=== PATIENT | female | born 1940 | race Caucasian/White ===

== ENCOUNTER 2020-11-18 10:12 | Inpatient (IN) | payer MEDICARE ==
[2020-11-18 11:07] LABS: #Eosinphils 0.1 10x3/uL (0.0-0.5); #Monocytes 0.8 10x3/uL (0.0-1.1); #Neutrophils 7.8 10x3/uL (1.5-8.4); %Basophils 0.3 % (0.0-2.0); %Eosinophils 0.9 % (0.0-6.0); %Monocytes 8.1 % (0.0-10.0); %Neutrophils 84.2 % (40.0-75.0); Hemoglobin 8.8 g/dL (12.0-15.5); Mean Corpuscular HGB CONC 31.5 g/dL (32.0-36.0); Mean Corpuscular Hemoglobin 30.2 pg (27.0-33.0); Mean Corpuscular Volume 95.9 fl (81.6-98.3); Mean Platelet Volume 10.2 fl (7.4-10.4); Platelet Count 131 10x3/uL (150-450); RBC Distribution Width 13.5 % (11.5-14.5); Red Blood Cell (RBC) Count 2.91 10x6/uL (3.90-5.03); White Blood Cell (WBC) Count 9.2 10x3/uL (3.5-10.5)
[2020-11-18 11:31] LABS: ALT (SGPT) 12 U/L (8-55); AST (SGOT) 17 U/L (5-34); Albumin 3.8 g/dL (3.4-4.8); Alkaline Phosphatase 61 U/L (40-110); Anion Gap 17 mmol/L (10-20); BUN (Urea Nitrogen) 35 mg/dL (9.8-20.1); Bilirubin, Total 0.6 mg/dL (0.2-1.2); Calc. Creatinine Clearance 0 mL/min (70-130); Calcium 9.4 mg/dL (7.8-10.44); Carbon Dioxide 28 mmol/L (23-31); Chloride 101 mmol/L (98-107); Globulin 1.9 g/dL (2.4-3.5); Glucose 121 mg/dL (83-110); Potassium 3.7 mmol/L (3.5-5.1); Protein, Total 5.7 g/dL (5.8-8.1); Sodium 142 mmol/L (136-145)
[2020-11-18] MEDS ORDERED: cefTRIAXone\\ROCEPHIN 1 GM VIAL ONE (11:46)
[2020-11-18] MEDS ORDERED: Azithromycin 500 MG VIAL ONE (11:47)
[2020-11-18 12:32] LABS: SARS-CoV-2 NAA Rapid Test Not Detected (NotDetected)
[2020-11-18] MEDS ORDERED: HYDROcodone/Acetaminophen 5/325 mg Tablet ONE (13:13)
[2020-11-18] MEDS ORDERED: Dextrose 50% Abboject 50 ML SYRINGE SLOW IVP PRN (13:45)
[2020-11-18] MEDS ORDERED: HumaLOG 300 UNITS/3 ML VIAL SC PRN (13:45)
[2020-11-18] MEDS ORDERED: Dextrose 5% in Water 1,000 ML IV PRN (13:45)
[2020-11-18] MEDS ORDERED: Benzonatate 100 MG CAP PO PRN (13:46)
[2020-11-18] MEDS ORDERED: Acetaminophen 325 MG TAB PO PRN (13:47)
[2020-11-18] MEDS ORDERED: Calcium Carbonate 500 MG ChewTAB PO PRN (13:47)
[2020-11-18] MEDS ORDERED: Ondansetron ODT 4 MG TAB PO PRN (13:47)
[2020-11-18] MEDS ORDERED: Senokot S 8.6-50 MG TAB PO PRN (13:47)
[2020-11-18] MEDS ORDERED: Guaifenesin DM 100-10/5 ML UDCUP PO PRN (13:47)
[2020-11-18 14:31] LABS: Troponin I 0.027 ng/mL (< 0.028)
[2020-11-18 17:24] LABS: Troponin I 0.028 ng/mL (< 0.028)
[2020-11-18] MEDS ORDERED: guaiFENesin ER 600 MG TAB PO SCH (21:00)
[2020-11-19] MEDS ORDERED: cloNIDine 0.1 MG TAB PO SCH (01:30)
[2020-11-19 04:55] LABS: #Eosinphils 0.1 10x3/uL (0.0-0.5); #Monocytes 0.8 10x3/uL (0.0-1.1); #Neutrophils 7.2 10x3/uL (1.5-8.4); %Basophils 0.3 % (0.0-2.0); %Eosinophils 0.6 % (0.0-6.0); %Lymphocytes 7.5 % (18.0-47.0); %Monocytes 8.9 % (0.0-10.0); %Neutrophils 82.2 % (40.0-75.0); Hemoglobin 8.4 g/dL (12.0-15.5); Mean Corpuscular HGB CONC 31.9 g/dL (32.0-36.0); Mean Corpuscular Hemoglobin 30.8 pg (27.0-33.0); Mean Corpuscular Volume 96.3 fl (81.6-98.3); Mean Platelet Volume 10.1 fl (7.4-10.4); Platelet Count 121 10x3/uL (150-450); RBC Distribution Width 13.5 % (11.5-14.5); Red Blood Cell (RBC) Count 2.73 10x6/uL (3.90-5.03); White Blood Cell (WBC) Count 8.8 10x3/uL (3.5-10.5)
[2020-11-19 05:00] LABS: Anion Gap 12 mmol/L (10-20); BUN (Urea Nitrogen) 29 mg/dL (9.8-20.1); Calc. Creatinine Clearance 36 mL/min (70-130); Calcium 9.1 mg/dL (7.8-10.44); Carbon Dioxide 30 mmol/L (23-31); Chloride 102 mmol/L (98-107); Glucose 132 mg/dL (83-110); Potassium 3.7 mmol/L (3.5-5.1); Sodium 140 mmol/L (136-145)
[2020-11-19] MEDS: Furosemide 20 MG TAB PO SCH (08:56)
[2020-11-19] MEDS: Carvedilol 12.5 MG TAB PO SCH ×2 (08:56→21:17)
[2020-11-19] MEDS: Clopidogrel Bisulfate 75 MG TAB PO SCH (08:56)
[2020-11-19] MEDS: Enoxaparin Sodium 30 MG/0.3 ML SYRINGE SC SCH (08:56)
[2020-11-19] MEDS: Multivitamin W/ Minerals 1 TAB PO SCH (08:56)
[2020-11-19] MEDS: Bupropion 150 MG XL TAB PO SCH (08:57)
[2020-11-19] MEDS: Ascorbic Acid 500 mg Chewable Tablet PO SCH (08:57)
[2020-11-19] MEDS ORDERED: Non-Formulary Medication 1 EACH (Esomeprazole Magnesium [Nexium] 20 MG Capsule.Dr) PO SCH (09:00)
[2020-11-19] MEDS ORDERED: Ferrous Sulfate 325 MG TAB PO SCH (09:00)
[2020-11-19] MEDS ORDERED: Flecainide 50 MG TAB PO SCH (10:15)
[2020-11-19] MEDS: hydrALAZINE 25 MG TAB PO SCH ×4 (10:43→21:17)
[2020-11-19] MEDS: cefTRIAXone\\ROCEPHIN 1 GM in Sodium Chloride 0.9% 100 ML IVPB SCH (12:10)
[2020-11-19] MEDS: HumaLOG 300 UNITS/3 ML VIAL SC PRN (13:04)
[2020-11-19] MEDS: Azithromycin 500 MG in Sodium Chloride 0.9% 250 ML 250 ML IVPB SCH (13:04)
[2020-11-19] MEDS: PARoxetine 20 MG TAB PO SCH (21:18)
[2020-11-19] MEDS: guaiFENesin ER 600 MG TAB PO SCH (21:18)
[2020-11-19] MEDS: Atorvastatin Calcium 20 MG TAB PO SCH (21:18)
[2020-11-19] MEDS: Flecainide 50 MG TAB PO SCH (21:18)
[2020-11-19] MEDS: cloNIDine 0.1 MG TAB PO SCH (21:19)
[2020-11-19] MEDS: Doxazosin 2 MG TAB PO SCH (21:22)
[2020-11-20] MEDS: HumaLOG 300 UNITS/3 ML VIAL SC PRN ×3 (06:18→15:48)
[2020-11-20] MEDS: Enoxaparin Sodium 30 MG/0.3 ML SYRINGE SC SCH (08:37)
[2020-11-20] MEDS: hydrALAZINE 25 MG TAB PO SCH ×4 (08:37→21:38)
[2020-11-20] MEDS: Furosemide 20 MG TAB PO SCH (08:37)
[2020-11-20] MEDS: Ferrous Sulfate 325 MG TAB PO SCH (08:41)
[2020-11-20] MEDS: Flecainide 50 MG TAB PO SCH ×2 (08:41→21:37)
[2020-11-20] MEDS: guaiFENesin ER 600 MG TAB PO SCH ×2 (08:41→21:37)
[2020-11-20] MEDS: Multivitamin W/ Minerals 1 TAB PO SCH (08:41)
[2020-11-20] MEDS: Carvedilol 12.5 MG TAB PO SCH ×2 (08:41→21:39)
[2020-11-20] MEDS: Clopidogrel Bisulfate 75 MG TAB PO SCH (08:41)
[2020-11-20] MEDS: Ascorbic Acid 500 mg Chewable Tablet PO SCH (08:42)
[2020-11-20] MEDS: Bupropion 150 MG XL TAB PO SCH (08:42)
[2020-11-20] MEDS: cefTRIAXone\\ROCEPHIN 1 GM in Sodium Chloride 0.9% 100 ML IVPB SCH (11:53)
[2020-11-20] MEDS: Azithromycin 500 MG in Sodium Chloride 0.9% 250 ML 250 ML IVPB SCH (11:54)
[2020-11-20] MEDS: Doxazosin 2 MG TAB PO SCH (21:37)
[2020-11-20] MEDS: Atorvastatin Calcium 20 MG TAB PO SCH (21:38)
[2020-11-20] MEDS: PARoxetine 20 MG TAB PO SCH (21:39)
[2020-11-20] MEDS: cloNIDine 0.1 MG TAB PO SCH (21:39)
[2020-11-21 05:00] LABS: #Eosinphils 0.1 10x3/uL (0.0-0.5); #Monocytes 0.5 10x3/uL (0.0-1.1); #Neutrophils 3.5 10x3/uL (1.5-8.4); %Basophils 0.4 % (0.0-2.0); %Eosinophils 1.5 % (0.0-6.0); %Lymphocytes 11.9 % (18.0-47.0); %Monocytes 10.7 % (0.0-10.0); %Neutrophils 75.1 % (40.0-75.0); Hemoglobin 7.2 g/dL (12.0-15.5); Mean Corpuscular Volume 96.7 fl (81.6-98.3); Mean Platelet Volume 10.4 fl (7.4-10.4); Platelet Count 111 10x3/uL (150-450); RBC Distribution Width 13.2 % (11.5-14.5); White Blood Cell (WBC) Count 4.7 10x3/uL (3.5-10.5)
[2020-11-21 05:16] LABS: Anion Gap 14 mmol/L (10-20); BUN (Urea Nitrogen) 37 mg/dL (9.8-20.1); Calc. Creatinine Clearance 0 mL/min (70-130); Calcium 8.8 mg/dL (7.8-10.44); Carbon Dioxide 28 mmol/L (23-31); Chloride 101 mmol/L (98-107); Glucose 182 mg/dL (83-110); Potassium 3.6 mmol/L (3.5-5.1); Sodium 139 mmol/L (136-145)
[2020-11-21] MEDS: Ascorbic Acid 500 mg Chewable Tablet PO SCH (08:33)
[2020-11-21] MEDS: Clopidogrel Bisulfate 75 MG TAB PO SCH (08:33)
[2020-11-21] MEDS: Carvedilol 12.5 MG TAB PO SCH ×2 (08:33→22:17)
[2020-11-21] MEDS: Ferrous Sulfate 325 MG TAB PO SCH (08:33)
[2020-11-21] MEDS: Bupropion 150 MG XL TAB PO SCH (08:33)
[2020-11-21] MEDS: hydrALAZINE 25 MG TAB PO SCH ×4 (08:34→22:17)
[2020-11-21] MEDS: Multivitamin W/ Minerals 1 TAB PO SCH (08:34)
[2020-11-21] MEDS: Furosemide 20 MG TAB PO SCH (08:34)
[2020-11-21] MEDS: Enoxaparin Sodium 30 MG/0.3 ML SYRINGE SC SCH (08:34)
[2020-11-21] MEDS: guaiFENesin ER 600 MG TAB PO SCH ×2 (08:34→22:30)
[2020-11-21] MEDS: Flecainide 50 MG TAB PO SCH ×2 (08:34→22:18)
[2020-11-21] MEDS: cefTRIAXone\\ROCEPHIN 1 GM in Sodium Chloride 0.9% 100 ML IVPB SCH (12:10)
[2020-11-21] MEDS: Azithromycin 500 MG in Sodium Chloride 0.9% 250 ML 250 ML IVPB SCH (13:20)
[2020-11-21] MEDS: Atorvastatin Calcium 20 MG TAB PO SCH (22:18)
[2020-11-21] MEDS: PARoxetine 20 MG TAB PO SCH (22:18)
[2020-11-21] MEDS: Doxazosin 2 MG TAB PO SCH (22:18)
[2020-11-21] MEDS: cloNIDine 0.1 MG TAB PO SCH (22:19)
[2020-11-22] MEDS: Carvedilol 12.5 MG TAB PO SCH ×2 (06:32→21:19)
[2020-11-22 08:16] LABS: #Eosinphils 0.1 10x3/uL (0.0-0.5); #Monocytes 0.5 10x3/uL (0.0-1.1); #Neutrophils 3.7 10x3/uL (1.5-8.4); %Basophils 0.4 % (0.0-2.0); %Eosinophils 1.4 % (0.0-6.0); %Lymphocytes 11.5 % (18.0-47.0); %Monocytes 10.2 % (0.0-10.0); %Neutrophils 76.1 % (40.0-75.0); Hemoglobin 7.7 g/dL (12.0-15.5); Mean Corpuscular HGB CONC 31.6 g/dL (32.0-36.0); Mean Corpuscular Hemoglobin 30.4 pg (27.0-33.0); Mean Corpuscular Volume 96.4 fl (81.6-98.3); Mean Platelet Volume 10.1 fl (7.4-10.4); Platelet Count 124 10x3/uL (150-450); RBC Distribution Width 12.9 % (11.5-14.5); Red Blood Cell (RBC) Count 2.53 10x6/uL (3.90-5.03); White Blood Cell (WBC) Count 4.9 10x3/uL (3.5-10.5)
[2020-11-22] MEDS: Bupropion 150 MG XL TAB PO SCH (09:02)
[2020-11-22] MEDS: Enoxaparin Sodium 30 MG/0.3 ML SYRINGE SC SCH (09:02)
[2020-11-22] MEDS: Flecainide 50 MG TAB PO SCH ×2 (09:03→21:18)
[2020-11-22] MEDS: Ferrous Sulfate 325 MG TAB PO SCH (09:03)
[2020-11-22] MEDS: Furosemide 20 MG TAB PO SCH (09:03)
[2020-11-22] MEDS: guaiFENesin ER 600 MG TAB PO SCH ×2 (09:03→21:19)
[2020-11-22] MEDS: hydrALAZINE 25 MG TAB PO SCH ×4 (09:03→21:18)
[2020-11-22] MEDS: Ascorbic Acid 500 mg Chewable Tablet PO SCH (09:03)
[2020-11-22] MEDS: Clopidogrel Bisulfate 75 MG TAB PO SCH (09:03)
[2020-11-22] MEDS: Multivitamin W/ Minerals 1 TAB PO SCH (09:03)
[2020-11-22] MEDS: Ondansetron PF 4 MG/2 ML Vial IVP PRN (09:43)
[2020-11-22] MEDS: cefTRIAXone\\ROCEPHIN 1 GM in Sodium Chloride 0.9% 100 ML IVPB SCH (13:06)
[2020-11-22] MEDS: Azithromycin 500 MG in Sodium Chloride 0.9% 250 ML 250 ML IVPB SCH (13:06)
[2020-11-22] MEDS ORDERED: Furosemide 20 MG/2 ML VIAL SLOW IVP SCH (13:45)
[2020-11-22 16:01] LABS: Hemoglobin 7.6 g/dL (12.0-15.5)
[2020-11-22] MEDS: PARoxetine 20 MG TAB PO SCH (21:18)
[2020-11-22] MEDS: cloNIDine 0.1 MG TAB PO SCH (21:18)
[2020-11-22] MEDS: Atorvastatin Calcium 20 MG TAB PO SCH (21:18)
[2020-11-22] MEDS: Doxazosin 2 MG TAB PO SCH (21:19)
[2020-11-23 05:23] LABS: #Eosinphils 0.1 10x3/uL (0.0-0.5); #Monocytes 0.5 10x3/uL (0.0-1.1); #Neutrophils 3.3 10x3/uL (1.5-8.4); %Basophils 0.7 % (0.0-2.0); %Eosinophils 1.4 % (0.0-6.0); %Monocytes 11.3 % (0.0-10.0); %Neutrophils 74.7 % (40.0-75.0); Hemoglobin 7.7 g/dL (12.0-15.5); Mean Corpuscular HGB CONC 31.7 g/dL (32.0-36.0); Mean Corpuscular Hemoglobin 30.7 pg (27.0-33.0); Mean Corpuscular Volume 96.8 fl (81.6-98.3); Mean Platelet Volume 10.3 fl (7.4-10.4); Platelet Count 129 10x3/uL (150-450); RBC Distribution Width 12.9 % (11.5-14.5); Red Blood Cell (RBC) Count 2.51 10x6/uL (3.90-5.03); White Blood Cell (WBC) Count 4.4 10x3/uL (3.5-10.5)
[2020-11-23 05:30] LABS: Anion Gap 12 mmol/L (10-20); BUN (Urea Nitrogen) 30 mg/dL (9.8-20.1); Calc. Creatinine Clearance 31 mL/min (70-130); Carbon Dioxide 31 mmol/L (23-31); Chloride 99 mmol/L (98-107); Glucose 189 mg/dL (83-110); Potassium 3.7 mmol/L (3.5-5.1); Sodium 138 mmol/L (136-145)
[2020-11-23] MEDS: HumaLOG 300 UNITS/3 ML VIAL SC PRN ×2 (06:29→11:25)
[2020-11-23] MEDS ORDERED: Furosemide 40 MG/4 ML VIAL SLOW IVP SCH ×2 (07:30→12:00)
[2020-11-23] MEDS: Ascorbic Acid 500 mg Chewable Tablet PO SCH (09:08)
[2020-11-23] MEDS: Furosemide 20 MG TAB PO SCH (09:08)
[2020-11-23] MEDS: Enoxaparin Sodium 30 MG/0.3 ML SYRINGE SC SCH (09:08)
[2020-11-23] MEDS: guaiFENesin ER 600 MG TAB PO SCH ×2 (09:08→20:59)
[2020-11-23] MEDS: Flecainide 50 MG TAB PO SCH ×2 (09:08→20:59)
[2020-11-23] MEDS: Ferrous Sulfate 325 MG TAB PO SCH (09:08)
[2020-11-23] MEDS: hydrALAZINE 25 MG TAB PO SCH ×4 (09:08→20:57)
[2020-11-23] MEDS: Clopidogrel Bisulfate 75 MG TAB PO SCH (09:08)
[2020-11-23] MEDS: Carvedilol 12.5 MG TAB PO SCH ×2 (09:08→21:00)
[2020-11-23] MEDS: Multivitamin W/ Minerals 1 TAB PO SCH (09:08)
[2020-11-23] MEDS: Bupropion 150 MG XL TAB PO SCH (09:08)
[2020-11-23] MEDS: cefTRIAXone\\ROCEPHIN 1 GM in Sodium Chloride 0.9% 100 ML IVPB SCH (11:24)
[2020-11-23] MEDS: Azithromycin 500 MG in Sodium Chloride 0.9% 250 ML 250 ML IVPB SCH (11:24)
[2020-11-23] MEDS: Atorvastatin Calcium 20 MG TAB PO SCH (20:59)
[2020-11-23] MEDS: PARoxetine 20 MG TAB PO SCH (20:59)
[2020-11-23] MEDS: cloNIDine 0.1 MG TAB PO SCH (21:00)
[2020-11-23] MEDS: Doxazosin 2 MG TAB PO SCH (21:01)
[2020-11-24] MEDS: hydrALAZINE 25 MG TAB PO SCH ×4 (04:03→21:22)
[2020-11-24] MEDS: HumaLOG 300 UNITS/3 ML VIAL SC PRN ×3 (05:32→21:24)
[2020-11-24 05:33] LABS: #Eosinphils 0.1 10x3/uL (0.0-0.5); #Monocytes 0.5 10x3/uL (0.0-1.1); #Neutrophils 2.7 10x3/uL (1.5-8.4); %Basophils 0.8 % (0.0-2.0); %Eosinophils 2.8 % (0.0-6.0); %Lymphocytes 14.9 % (18.0-47.0); %Monocytes 12.4 % (0.0-10.0); %Neutrophils 67.6 % (40.0-75.0); Hemoglobin 7.8 g/dL (12.0-15.5); Mean Corpuscular HGB CONC 31.7 g/dL (32.0-36.0); Mean Corpuscular Hemoglobin 30.1 pg (27.0-33.0); Mean Platelet Volume 10.2 fl (7.4-10.4); Platelet Count 131 10x3/uL (150-450); RBC Distribution Width 12.7 % (11.5-14.5); Red Blood Cell (RBC) Count 2.59 10x6/uL (3.90-5.03)
[2020-11-24 05:36] LABS: Anion Gap 12 mmol/L (10-20); BUN (Urea Nitrogen) 30 mg/dL (9.8-20.1); Calc. Creatinine Clearance 32 mL/min (70-130); Carbon Dioxide 33 mmol/L (23-31); Chloride 95 mmol/L (98-107); Glucose 203 mg/dL (83-110); Potassium 3.4 mmol/L (3.5-5.1); Sodium 137 mmol/L (136-145)
[2020-11-24] MEDS ORDERED: Furosemide 20 MG/2 ML VIAL ONE (06:42)
[2020-11-24] MEDS ORDERED: Furosemide 40 MG/4 ML VIAL SLOW IVP SCH (06:45)
[2020-11-24] MEDS ORDERED: Potassium Chloride 20 MEQ TAB PO SCH (07:00)
[2020-11-24] MEDS: Ferrous Sulfate 325 MG TAB PO SCH (08:59)
[2020-11-24] MEDS: Flecainide 50 MG TAB PO SCH ×2 (08:59→21:23)
[2020-11-24] MEDS: Clopidogrel Bisulfate 75 MG TAB PO SCH (08:59)
[2020-11-24] MEDS: Furosemide 20 MG TAB PO SCH (08:59)
[2020-11-24] MEDS: Bupropion 150 MG XL TAB PO SCH (09:00)
[2020-11-24] MEDS: guaiFENesin ER 600 MG TAB PO SCH ×3 (09:00→21:23)
[2020-11-24] MEDS: Cefuroxime Axetil 250 MG TAB PO SCH ×3 (09:00→21:33)
[2020-11-24] MEDS: Enoxaparin Sodium 30 MG/0.3 ML SYRINGE SC SCH (09:00)
[2020-11-24] MEDS: Ascorbic Acid 500 mg Chewable Tablet PO SCH (09:00)
[2020-11-24] MEDS: Carvedilol 12.5 MG TAB PO SCH ×2 (09:00→21:23)
[2020-11-24] MEDS: Multivitamin W/ Minerals 1 TAB PO SCH (09:00)
[2020-11-24 16:28] LABS: Hemoglobin 9.9 g/dL (12.0-15.5)
[2020-11-24] MEDS ORDERED: Furosemide 20 MG/2 ML VIAL SLOW IVP SCH (17:00)
[2020-11-24] MEDS: Doxazosin 2 MG TAB PO SCH (21:17)
[2020-11-24] MEDS: cloNIDine 0.1 MG TAB PO SCH (21:18)
[2020-11-24] MEDS: PARoxetine 20 MG TAB PO SCH (21:23)
[2020-11-24] MEDS: Atorvastatin Calcium 20 MG TAB PO SCH (21:23)
[2020-11-25 05:07] LABS: #Eosinphils 0.1 10x3/uL (0.0-0.5); #Monocytes 0.6 10x3/uL (0.0-1.1); #Neutrophils 3.7 10x3/uL (1.5-8.4); %Basophils 0.6 % (0.0-2.0); %Eosinophils 1.6 % (0.0-6.0); %Lymphocytes 13.7 % (18.0-47.0); %Monocytes 11.4 % (0.0-10.0); %Neutrophils 71.5 % (40.0-75.0); Hemoglobin 9.8 g/dL (12.0-15.5); Mean Corpuscular HGB CONC 32.3 g/dL (32.0-36.0); Mean Corpuscular Volume 92.7 fl (81.6-98.3); Platelet Count 158 10x3/uL (150-450); RBC Distribution Width 13.2 % (11.5-14.5); Red Blood Cell (RBC) Count 3.27 10x6/uL (3.90-5.03); White Blood Cell (WBC) Count 5.1 10x3/uL (3.5-10.5)
[2020-11-25 05:18] LABS: Anion Gap 14 mmol/L (10-20); BUN (Urea Nitrogen) 29 mg/dL (9.8-20.1); Calc. Creatinine Clearance 29 mL/min (70-130); Calcium 9.5 mg/dL (7.8-10.44); Carbon Dioxide 34 mmol/L (23-31); Chloride 93 mmol/L (98-107); Glucose 222 mg/dL (83-110); Potassium 3.6 mmol/L (3.5-5.1); Sodium 137 mmol/L (136-145)
[2020-11-25] MEDS: HumaLOG 300 UNITS/3 ML VIAL SC PRN (05:44)
[2020-11-25] MEDS ORDERED: Furosemide 20 MG/2 ML VIAL SLOW IVP SCH (06:45)
[2020-11-25] MEDS ORDERED: Potassium Chloride 20 MEQ TAB PO SCH (07:45)
[2020-11-25] MEDS: Carvedilol 12.5 MG TAB PO SCH (08:07)
[2020-11-25] MEDS: Bupropion 150 MG XL TAB PO SCH (08:07)
[2020-11-25] MEDS: Clopidogrel Bisulfate 75 MG TAB PO SCH (08:07)
[2020-11-25] MEDS: hydrALAZINE 25 MG TAB PO SCH (08:08)
[2020-11-25] MEDS: Furosemide 20 MG TAB PO SCH (08:08)
[2020-11-25] MEDS: Ferrous Sulfate 325 MG TAB PO SCH (08:08)
[2020-11-25] MEDS: Ascorbic Acid 500 mg Chewable Tablet PO SCH (08:08)
[2020-11-25] MEDS: Multivitamin W/ Minerals 1 TAB PO SCH (08:08)
[2020-11-25] MEDS: Flecainide 50 MG TAB PO SCH (08:09)
[2020-11-25] MEDS: Enoxaparin Sodium 30 MG/0.3 ML SYRINGE SC SCH (08:09)
[2020-11-25] MEDS: Ondansetron PF 4 MG/2 ML Vial IVP PRN (08:39)
[2020-11-25] MEDS: guaiFENesin ER 600 MG TAB PO SCH (10:02)
[2020-11-25 12:43] VITALS: BP 160/75; TEMP 98.8
== END 2020-11-25 13:15 | disposition home or self-care (01) | DRG 193 ==
LOC: CSHERS 10:12 → CSHTELE 15:49
PROVIDERS: ADMIT Family Medicine; ATTEND Internal Medicine
PROC: 30233N1 Transfusion of Nonautologous Red Blood Cells into Peripheral Vein, Percutaneous Approach (ICD-10-PCS; principal; 2020-11-24)
DX: J18.9 Pneumonia, unspecified organism (principal); J96.01 Acute respiratory failure with hypoxia; I48.21 Permanent atrial fibrillation; I13.0 Hypertensive heart and chronic kidney disease with heart failure and stage 1 through stage 4 chronic kidney disease, or unspecified chronic kidney disease; N18.4 Chronic kidney disease, stage 4 (severe); I25.10 Atherosclerotic heart disease of native coronary artery without angina pectoris; Z95.1 Presence of aortocoronary bypass graft; Z95.5 Presence of coronary angioplasty implant and graft; E11.22 Type 2 diabetes mellitus with diabetic chronic kidney disease; I50.9 Heart failure, unspecified; D64.9 Anemia, unspecified; K21.9 Gastro-esophageal reflux disease without esophagitis; F32.9 Major depressive disorder, single episode, unspecified; Z95.0 Presence of cardiac pacemaker; E78.5 Hyperlipidemia, unspecified; Z20.822 Contact with and (suspected) exposure to COVID-19
CPT/HCPCS: 36415; 36416; 36430; 71045; 80048; 80053; 82274; 83735; 83880; 84484; 85025; 86850; 86900; 86901; 87040; 87070; 87205; 93005; 93010; 94760; J0456; J0696; J1650; J1815; J1940; J2405; J3490; J7050; P9016; U0002

== ENCOUNTER 2021-11-28 15:57 | Inpatient (IN) | payer MEDICARE ==
[2021-11-28] MEDS ORDERED: hydrALAZINE 20 MG/ML VIAL SLOW IVP PRN (19:37)
[2021-11-28] MEDS ORDERED: Acetaminophen 325 MG TAB PO PRN (19:38)
[2021-11-28] MEDS ORDERED: Dextrose 50% Abboject 50 ML SYRINGE SLOW IVP PRN (19:44)
[2021-11-28] MEDS ORDERED: Dextrose 5% in Water 1,000 ML IV PRN (19:44)
[2021-11-28] MEDS ORDERED: Magnesium 2 GM/50 ML(in water) 2 GM in Premix Bag 1 BAG IVPB SCH (20:00)
[2021-11-28 20:42] LABS: CKMB 1.2 ng/mL (0-6.6)
[2021-11-28] MEDS: cloNIDine 0.1 MG TAB PO SCH (21:07)
[2021-11-28] MEDS: Apixaban 2.5 MG TAB PO SCH (21:07)
[2021-11-28] MEDS: Carvedilol 12.5 MG TAB PO SCH (21:08)
[2021-11-28] MEDS: PARoxetine 20 MG TAB PO SCH (21:08)
[2021-11-28] MEDS: HumaLOG 300 UNITS/3 ML VIAL SC PRN (22:15)
[2021-11-29 05:15] LABS: Anion Gap 12 mmol/L (10-20); BUN (Urea Nitrogen) 26 mg/dL (9.8-20.1); Calc. Creatinine Clearance 27 mL/min (70-130); Calcium 8.6 mg/dL (7.8-10.44); Carbon Dioxide 35 mmol/L (23-31); Cardiac Risk 7.4 (Less than 4.5); Chloride 100 mmol/L (98-107); Cholesterol 273 mg/dl (< 200 Desired); Glucose 134 mg/dL (83-110); HDL Cholesterol 37 mg/dL (>60 Neg Risk); LDL Cholesterol, Calculated 208 mg/dL; Magnesium 1.7 mg/dL (1.6-2.6); Potassium 3.2 mmol/L (3.5-5.1); Sodium 144 mmol/L (136-145); Triglycerides 139 mg/dL (Less than 150)
[2021-11-29 05:24] LABS: #Eosinphils 0.1 10x3/uL (0.0-0.5); #Monocytes 0.4 10x3/uL (0.0-1.1); #Neutrophils 2.5 10x3/uL (1.5-8.4); %Basophils 0.5 % (0.0-2.0); %Eosinophils 1.8 % (0.0-6.0); %Monocytes 10.5 % (0.0-10.0); %Neutrophils 66.9 % (40.0-75.0); Hemoglobin 9.6 g/dL (12.0-15.5); Mean Corpuscular HGB CONC 32.4 g/dL (32.0-36.0); Mean Corpuscular Hemoglobin 30.9 pg (27.0-33.0); Mean Corpuscular Volume 95.2 fl (81.6-98.3); Mean Platelet Volume 10.5 fl (7.4-10.4); Platelet Count 145 10x3/uL (150-450); Red Blood Cell (RBC) Count 3.11 10x6/uL (3.90-5.03); White Blood Cell (WBC) Count 3.8 10x3/uL (3.5-10.5)
[2021-11-29] MEDS: Furosemide 40 MG/4 ML VIAL SLOW IVP SCH (05:46)
[2021-11-29] MEDS: Ferrous Sulfate 325 MG TAB PO SCH (07:52)
[2021-11-29] MEDS: Ascorbic Acid 500 mg Chewable Tablet PO SCH (07:52)
[2021-11-29] MEDS: Bupropion 150 MG XL TAB PO SCH (07:52)
[2021-11-29] MEDS: Apixaban 2.5 MG TAB PO SCH ×2 (07:52→20:59)
[2021-11-29] MEDS: Carvedilol 12.5 MG TAB PO SCH ×2 (07:53→21:01)
[2021-11-29] MEDS: Clopidogrel Bisulfate 75 MG TAB PO SCH (07:53)
[2021-11-29] MEDS ORDERED: Potassium Chloride 20 MEQ TAB PO SCH (08:00)
[2021-11-29] MEDS ORDERED: Magnesium 2 GM/50 ML(in water) 2 GM in Premix Bag 1 BAG IVPB SCH (11:30)
[2021-11-29 12:36] LABS: Hemoglobin A1c 9.3 % (4.0-6.0)
[2021-11-29] MEDS: Potassium Chloride 20 MEQ TAB PO SCH (17:56)
[2021-11-29] MEDS: PARoxetine 20 MG TAB PO SCH (20:59)
[2021-11-29] MEDS: Atorvastatin Calcium 40 MG TAB PO SCH (21:00)
[2021-11-29] MEDS: cloNIDine 0.1 MG TAB PO SCH (21:00)
[2021-11-29] MEDS: HumaLOG 300 UNITS/3 ML VIAL SC PRN (21:03)
[2021-11-29] MEDS: Losartan 25 MG TAB PO SCH (21:03)
[2021-11-30 05:17] LABS: Anion Gap 12 mmol/L (10-20); BUN (Urea Nitrogen) 25 mg/dL (9.8-20.1); Calc. Creatinine Clearance 29 mL/min (70-130); Calcium 8.6 mg/dL (7.8-10.44); Carbon Dioxide 34 mmol/L (23-31); Chloride 98 mmol/L (98-107); Glucose 108 mg/dL (83-110); Potassium 3.4 mmol/L (3.5-5.1); Sodium 141 mmol/L (136-145)
[2021-11-30 05:37] LABS: #Eosinphils 0.1 10x3/uL (0.0-0.5); #Monocytes 0.3 10x3/uL (0.0-1.1); #Neutrophils 2.7 10x3/uL (1.5-8.4); %Basophils 0.5 % (0.0-2.0); %Eosinophils 1.3 % (0.0-6.0); %Lymphocytes 21.2 % (18.0-47.0); %Monocytes 8.2 % (0.0-10.0); %Neutrophils 68.5 % (40.0-75.0); Hemoglobin 9.5 g/dL (12.0-15.5); Mean Corpuscular HGB CONC 33.3 g/dL (32.0-36.0); Mean Corpuscular Hemoglobin 31.1 pg (27.0-33.0); Mean Corpuscular Volume 93.4 fl (81.6-98.3); Mean Platelet Volume 10.4 fl (7.4-10.4); Platelet Count 140 10x3/uL (150-450); RBC Distribution Width 13.8 % (11.5-14.5); Red Blood Cell (RBC) Count 3.05 10x6/uL (3.90-5.03); White Blood Cell (WBC) Count 3.9 10x3/uL (3.5-10.5)
[2021-11-30] MEDS: Furosemide 40 MG/4 ML VIAL SLOW IVP SCH (05:56)
[2021-11-30] MEDS: Apixaban 2.5 MG TAB PO SCH ×2 (09:16→21:19)
[2021-11-30] MEDS: Carvedilol 12.5 MG TAB PO SCH ×2 (09:16→21:19)
[2021-11-30] MEDS: Ferrous Sulfate 325 MG TAB PO SCH (09:16)
[2021-11-30] MEDS: Potassium Chloride 20 MEQ TAB PO SCH ×2 (09:16→21:19)
[2021-11-30] MEDS: Ascorbic Acid 500 mg Chewable Tablet PO SCH (09:16)
[2021-11-30] MEDS: Bupropion 150 MG XL TAB PO SCH (09:16)
[2021-11-30] MEDS: Clopidogrel Bisulfate 75 MG TAB PO SCH (09:16)
[2021-11-30] MEDS ORDERED: Potassium Chloride 20 MEQ TAB PO SCH (12:00)
[2021-11-30] MEDS: Ondansetron PF 4 MG/2 ML Vial IVP PRN (16:09)
[2021-11-30] MEDS: Atorvastatin Calcium 40 MG TAB PO SCH (21:19)
[2021-11-30] MEDS: Losartan 25 MG TAB PO SCH (21:19)
[2021-11-30] MEDS: PARoxetine 20 MG TAB PO SCH (21:19)
[2021-11-30] MEDS: cloNIDine 0.1 MG TAB PO SCH (21:19)
[2021-12-01 05:36] LABS: Anion Gap 13 mmol/L (10-20); BUN (Urea Nitrogen) 30 mg/dL (9.8-20.1); Calc. Creatinine Clearance 25 mL/min (70-130); Calcium 8.8 mg/dL (7.8-10.44); Carbon Dioxide 34 mmol/L (23-31); Chloride 99 mmol/L (98-107); Glucose 139 mg/dL (83-110); Potassium 4.6 mmol/L (3.5-5.1); Sodium 141 mmol/L (136-145)
[2021-12-01 06:13] LABS: #Monocytes 0.4 10x3/uL (0.0-1.1); %Basophils 0.2 % (0.0-2.0); %Eosinophils 0.4 % (0.0-6.0); %Lymphocytes 14.8 % (18.0-47.0); %Monocytes 7.8 % (0.0-10.0); %Neutrophils 76.6 % (40.0-75.0); Hemoglobin 9.3 g/dL (12.0-15.5); Mean Corpuscular Hemoglobin 31.5 pg (27.0-33.0); Mean Corpuscular Volume 95.6 fl (81.6-98.3); Mean Platelet Volume 10.7 fl (7.4-10.4); Platelet Count 137 10x3/uL (150-450); RBC Distribution Width 13.8 % (11.5-14.5); Red Blood Cell (RBC) Count 2.95 10x6/uL (3.90-5.03); White Blood Cell (WBC) Count 5.3 10x3/uL (3.5-10.5)
[2021-12-01] MEDS: Furosemide 40 MG/4 ML VIAL SLOW IVP SCH (06:13)
[2021-12-01] MEDS: Ferrous Sulfate 325 MG TAB PO SCH (12:52)
[2021-12-01] MEDS: Potassium Chloride 20 MEQ TAB PO SCH ×2 (12:52→22:50)
[2021-12-01] MEDS: Ascorbic Acid 500 mg Chewable Tablet PO SCH (12:52)
[2021-12-01] MEDS: Alogliptin 25 MG TAB PO SCH (12:52)
[2021-12-01] MEDS: Apixaban 2.5 MG TAB PO SCH ×2 (12:52→22:48)
[2021-12-01] MEDS: Bupropion 150 MG XL TAB PO SCH (12:52)
[2021-12-01] MEDS: Carvedilol 12.5 MG TAB PO SCH ×2 (12:53→22:48)
[2021-12-01] MEDS: Clopidogrel Bisulfate 75 MG TAB PO SCH (12:53)
[2021-12-01] MEDS ORDERED: guaiFENesin ER 600 MG TAB PO SCH (15:00)
[2021-12-01] MEDS: Atorvastatin Calcium 40 MG TAB PO SCH (22:48)
[2021-12-01] MEDS: guaiFENesin ER 600 MG TAB PO SCH (22:48)
[2021-12-01] MEDS: cloNIDine 0.1 MG TAB PO SCH (22:48)
[2021-12-01] MEDS: Losartan 25 MG TAB PO SCH (22:49)
[2021-12-01] MEDS: PARoxetine 20 MG TAB PO SCH (22:50)
[2021-12-02] MEDS ORDERED: Albuterol Sulfate 2.5 mg/3 ml Neb NEB PRN (02:19)
[2021-12-02] MEDS ORDERED: Furosemide 20 MG/2 ML VIAL SLOW IVP SCH (02:30)
[2021-12-02] MEDS ORDERED: Nitroglycerin 2% Ointment 1 INCH/1 GM Packet TOP SCH (02:30)
[2021-12-02 04:49] LABS: Anion Gap 14 mmol/L (10-20); BUN (Urea Nitrogen) 34 mg/dL (9.8-20.1); Calc. Creatinine Clearance 23 mL/min (70-130); Calcium 9.2 mg/dL (7.8-10.44); Carbon Dioxide 31 mmol/L (23-31); Chloride 98 mmol/L (98-107); Glucose 197 mg/dL (83-110); Potassium 4.4 mmol/L (3.5-5.1); Sodium 139 mmol/L (136-145)
[2021-12-02] MEDS: Furosemide 40 MG/4 ML VIAL SLOW IVP SCH (07:11)
[2021-12-02] MEDS: HumaLOG 300 UNITS/3 ML VIAL SC PRN ×2 (09:04→21:59)
[2021-12-02] MEDS: Clopidogrel Bisulfate 75 MG TAB PO SCH (09:06)
[2021-12-02] MEDS: Apixaban 2.5 MG TAB PO SCH ×2 (09:06→22:05)
[2021-12-02] MEDS: guaiFENesin ER 600 MG TAB PO SCH ×2 (09:06→22:05)
[2021-12-02] MEDS: Ascorbic Acid 500 mg Chewable Tablet PO SCH (09:06)
[2021-12-02] MEDS: Ferrous Sulfate 325 MG TAB PO SCH (09:07)
[2021-12-02] MEDS: Bupropion 150 MG XL TAB PO SCH (09:07)
[2021-12-02] MEDS: Carvedilol 12.5 MG TAB PO SCH ×2 (09:07→22:06)
[2021-12-02] MEDS: Alogliptin 25 MG TAB PO SCH (09:07)
[2021-12-02] MEDS: Potassium Chloride 20 MEQ TAB PO SCH ×2 (09:12→17:16)
[2021-12-02] MEDS ORDERED: Albumin 25% 25 GM/100 ML BOT IVPB SCH (10:00)
[2021-12-02] MEDS: ALPRAZolam 0.25 MG TAB PO PRN (10:01)
[2021-12-02] MEDS: Cefepime 1 GM in Sodium Chloride 0.9% 100 ML IVPB SCH ×2 (10:45→22:46)
[2021-12-02] MEDS ORDERED: Potassium Chloride 20 MEQ TAB PO SCH (11:00)
[2021-12-02] MEDS ORDERED: Furosemide 40 MG/4 ML VIAL SLOW IVP SCH (18:30)
[2021-12-02] MEDS: EPOETIN ALFA-EPBX (ESRD) 10,000 UNIT/ML VIAL SC SCH (21:59)
[2021-12-02] MEDS: PARoxetine 20 MG TAB PO SCH (22:00)
[2021-12-02] MEDS: Atorvastatin Calcium 40 MG TAB PO SCH (22:00)
[2021-12-02] MEDS: cloNIDine 0.1 MG TAB PO SCH (22:01)
[2021-12-02] MEDS: Losartan 25 MG TAB PO SCH (22:05)
[2021-12-03] MEDS: HumaLOG 300 UNITS/3 ML VIAL SC PRN ×3 (06:01→17:09)
[2021-12-03] MEDS: Clopidogrel Bisulfate 75 MG TAB PO SCH (08:32)
[2021-12-03] MEDS: Ferrous Sulfate 325 MG TAB PO SCH (08:33)
[2021-12-03] MEDS: guaiFENesin ER 600 MG TAB PO SCH ×2 (08:33→21:14)
[2021-12-03] MEDS: Apixaban 2.5 MG TAB PO SCH ×2 (08:33→21:14)
[2021-12-03] MEDS: Bupropion 150 MG XL TAB PO SCH (08:33)
[2021-12-03] MEDS: Alogliptin 25 MG TAB PO SCH (08:33)
[2021-12-03] MEDS: Ascorbic Acid 500 mg Chewable Tablet PO SCH (08:33)
[2021-12-03] MEDS: Carvedilol 12.5 MG TAB PO SCH ×2 (08:34→21:14)
[2021-12-03 08:57] LABS: Anion Gap 16 mmol/L (10-20); BUN (Urea Nitrogen) 55 mg/dL (9.8-20.1); Calc. Creatinine Clearance 19 mL/min (70-130); Calcium 9.7 mg/dL (7.8-10.44); Carbon Dioxide 33 mmol/L (23-31); Chloride 97 mmol/L (98-107); Glucose 192 mg/dL (83-110); Potassium 4.9 mmol/L (3.5-5.1); Sodium 141 mmol/L (136-145)
[2021-12-03 09:16] LABS: Hemoglobin 8.7 g/dL (12.0-15.5); Mean Corpuscular HGB CONC 31.4 g/dL (32.0-36.0); Mean Corpuscular Hemoglobin 30.9 pg (27.0-33.0); Mean Corpuscular Volume 98.2 fl (81.6-98.3); Mean Platelet Volume 10.7 fl (7.4-10.4); Platelet Count 122 10x3/uL (150-450); RBC Distribution Width 13.8 % (11.5-14.5); Red Blood Cell (RBC) Count 2.82 10x6/uL (3.90-5.03)
[2021-12-03] MEDS: Cefepime 1 GM in Sodium Chloride 0.9% 100 ML IVPB SCH ×2 (09:30→21:13)
[2021-12-03 10:02] LABS: MDiff Complete? YES; White Blood Cell (WBC) Count 3.3 10x3/uL (3.5-10.5)
[2021-12-03 10:17] LABS: Band 32 % (5-11); Lymphocytes 13 % (21-51); Metamyelocyte 1 % (0-0); Monocytes 10 % (0-10); Neutrophil 43 % (42-75); Reactive Lymphocytes 1 % (0-10)
[2021-12-03 10:19] LABS: Hypochromia SLIGHT = 6-15 cells (100X) (0-5/hpf)
[2021-12-03 10:20] LABS: Platelet Morphology Comment Appears Adequate
[2021-12-03 10:21] LABS: Large Platelets SLIGHT; Ovalocytes SLIGHT = 2-5 cells (100X) (0-1/hpf)
[2021-12-03] MEDS: Albumin 25% 25 GM/100 ML BOT IVPB SCH ×3 (11:02→21:13)
[2021-12-03 14:16] LABS: Bilirubin Neg (Negative); Blood, Urine Negative (Negative); Clarity Clear (Clear); Glucose, Urine (Dipstick) Normal (Negative); Ketone, Urine Negative (Negative); Leukocyte Negative (Negative); Nitrite Negative (Negative); Protein, Urine (Dipstick) Negative (Neg-Trace); Specific Gravity, Urine 1.015 (1.002-1.036); Urobilinogen Normal mg/dL (Less than 2)
[2021-12-03 14:21] LABS: Urine Culture Reflex No No
[2021-12-03 14:23] LABS: Bacteria/HPF None Seen HPF (None Seen); RBC/HPF 0-3 HPF (0-3); Squamous Epithelial 0-3 HPF (0-3); WBC/HPF 0-3 HPF (0-3)
[2021-12-03 14:41] LABS: Protein, Urine Random Quant Less than 10 mg/dL (1-14)
[2021-12-03] MEDS: Ondansetron PF 4 MG/2 ML Vial IVP PRN (17:23)
[2021-12-03 20:02] LABS: Sodium, Urine Less than 20 mmol/L (Not Available); Urea Nitrogen, Random Urine 296 mg/dl
[2021-12-03] MEDS: Atorvastatin Calcium 40 MG TAB PO SCH (21:14)
[2021-12-03] MEDS: PARoxetine 20 MG TAB PO SCH (21:14)
[2021-12-04] MEDS: Albumin 25% 25 GM/100 ML BOT IVPB SCH (04:55)
[2021-12-04 05:24] LABS: Anion Gap 19 mmol/L (10-20); BUN (Urea Nitrogen) 68 mg/dL (9.8-20.1); Calc. Creatinine Clearance 17 mL/min (70-130); Calcium 9.6 mg/dL (7.8-10.44); Carbon Dioxide 28 mmol/L (23-31); Chloride 98 mmol/L (98-107); Glucose 151 mg/dL (83-110); Iron 29 ug/dL (50-170); Iron Binding Capacity, Total 138 mcg/dL (265-497); Potassium 5.1 mmol/L (3.5-5.1); Sodium 140 mmol/L (136-145)
[2021-12-04] MEDS: Apixaban 2.5 MG TAB PO SCH ×2 (09:18→20:43)
[2021-12-04] MEDS: Ascorbic Acid 500 mg Chewable Tablet PO SCH (09:18)
[2021-12-04] MEDS: Clopidogrel Bisulfate 75 MG TAB PO SCH (09:18)
[2021-12-04] MEDS: Ferrous Sulfate 325 MG TAB PO SCH (09:18)
[2021-12-04] MEDS: guaiFENesin ER 600 MG TAB PO SCH ×2 (09:18→20:42)
[2021-12-04] MEDS: Bupropion 150 MG XL TAB PO SCH (09:18)
[2021-12-04] MEDS: Alogliptin 25 MG TAB PO SCH (09:18)
[2021-12-04] MEDS: Carvedilol 12.5 MG TAB PO SCH ×2 (09:18→20:43)
[2021-12-04] MEDS: Cefepime 1 GM in Sodium Chloride 0.9% 100 ML IVPB SCH ×2 (11:00→20:45)
[2021-12-04] MEDS: Iron, Sodium Ferric Gluconate 250 MG in Sodium Chloride 0.9% 250 ML 250 ML IVPB SCH (12:40)
[2021-12-04] MEDS ORDERED: Cefepime 1 GM VIAL ONE (20:06)
[2021-12-04] MEDS: Atorvastatin Calcium 40 MG TAB PO SCH (20:42)
[2021-12-04] MEDS: PARoxetine 20 MG TAB PO SCH (20:43)
[2021-12-05] MEDS ORDERED: Melatonin 3 MG TAB PO PRN (00:01)
[2021-12-05] MEDS: HumaLOG 300 UNITS/3 ML VIAL SC PRN ×2 (06:00→16:44)
[2021-12-05] MEDS: Ondansetron PF 4 MG/2 ML Vial IVP PRN ×3 (06:09→21:00)
[2021-12-05 08:38] LABS: Albumin 4.1 g/dL (3.4-4.8); Anion Gap 18 mmol/L (10-20); BUN (Urea Nitrogen) 89 mg/dL (9.8-20.1); BUN/Creatinine Ratio 28.71; Calc. Creatinine Clearance 14 mL/min (70-130); Calcium 9.8 mg/dL (7.8-10.44); Carbon Dioxide 31 mmol/L (23-31); Chloride 96 mmol/L (98-107); Glucose 268 mg/dL (83-110); Phosphorus 5.3 mg/dL (2.3-4.7); Potassium 5.2 mmol/L (3.5-5.1); Sodium 140 mmol/L (136-145)
[2021-12-05 08:53] LABS: Hemoglobin 8.5 g/dL (12.0-15.5); Mean Corpuscular HGB CONC 30.5 g/dL (32.0-36.0); Mean Corpuscular Hemoglobin 31.1 pg (27.0-33.0); Mean Corpuscular Volume 102.2 fl (81.6-98.3); Mean Platelet Volume 11.3 fl (7.4-10.4); Platelet Count 124 10x3/uL (150-450); RBC Distribution Width 14.1 % (11.5-14.5); Red Blood Cell (RBC) Count 2.73 10x6/uL (3.90-5.03); White Blood Cell (WBC) Count 5.9 10x3/uL (3.5-10.5)
[2021-12-05 09:23] LABS: Hemoglobin 8.4 g/dL (12.0-15.5); Mean Corpuscular HGB CONC 31.3 g/dL (32.0-36.0); Mean Corpuscular Volume 98.9 fl (81.6-98.3); Mean Platelet Volume 11.2 fl (7.4-10.4); Platelet Count 120 10x3/uL (150-450); RBC Distribution Width 14.1 % (11.5-14.5); Red Blood Cell (RBC) Count 2.71 10x6/uL (3.90-5.03); White Blood Cell (WBC) Count 5.9 10x3/uL (3.5-10.5)
[2021-12-05 09:25] LABS: ALT (SGPT) 29 U/L (8-55); AST (SGOT) 24 U/L (5-34); Alkaline Phosphatase 67 U/L (40-110); Anion Gap 18 mmol/L (10-20); BUN (Urea Nitrogen) 87 mg/dL (9.8-20.1); Bilirubin, Total 0.8 mg/dL (0.2-1.2); Calc. Creatinine Clearance 14 mL/min (70-130); Calcium 9.6 mg/dL (7.8-10.44); Carbon Dioxide 28 mmol/L (23-31); Chloride 96 mmol/L (98-107); Glucose 259 mg/dL (83-110); Potassium 4.8 mmol/L (3.5-5.1); Sodium 137 mmol/L (136-145)
[2021-12-05] MEDS ORDERED: Sodium Chloride 0.9% 1,000 ML IV SCH (09:30)
[2021-12-05 09:37] LABS: Actual Bicarbonate (HCO3a) 29.3 mEq/L (22-28); Base Excess (BEa) 3.9 mEq/L (-2.0 to +3.0); CO2 Tension 48.2 mmHg (35.0-45.0); Calcium, Ionized (arterial) 1.14 mmol/L (1.12-1.30); Carboxyhemoglobin (COHb) 0.2 gm% (0.0-3.0); Hemoglobin (Hb) 9.3 g/dL (12.0-16.0); O2 Tension (PaO2), arterial 185.7 mmHg (> 70.0); Potassium - ABG Lab 4.6 mmol/L (3.70-5.30); Puncture Site RBA
[2021-12-05 09:59] LABS: MDiff Complete? YES
[2021-12-05] MEDS ORDERED: Sodium Bicarbonate 50 MEQ in Sodium Chloride 0.45% 1,000 ML IV SCH (10:00)
[2021-12-05] MEDS ORDERED: Pantoprazole 40 MG VIAL IVP SCH (10:00)
[2021-12-05 10:13] LABS: Band 14 % (5-11); Lymphocytes 5 % (21-51); Monocytes 9 % (0-10); Neutrophil 72 % (42-75)
[2021-12-05 10:16] LABS: Hypochromia SLIGHT = 6-15 cells (100X) (0-5/hpf)
[2021-12-05 10:20] LABS: Platelet Morphology Comment Appears Decreased
[2021-12-05] MEDS: Cefepime 1 GM in Sodium Chloride 0.9% 100 ML IVPB SCH ×2 (10:45→12:31)
[2021-12-05] MEDS: Ferrous Sulfate 325 MG TAB PO SCH (10:57)
[2021-12-05] MEDS: Apixaban 2.5 MG TAB PO SCH ×2 (11:00→20:38)
[2021-12-05] MEDS: Alogliptin 25 MG TAB PO SCH (11:00)
[2021-12-05] MEDS: Carvedilol 12.5 MG TAB PO SCH ×2 (11:02→20:38)
[2021-12-05] MEDS: Ascorbic Acid 500 mg Chewable Tablet PO SCH (11:02)
[2021-12-05] MEDS: Bupropion 150 MG XL TAB PO SCH (11:02)
[2021-12-05] MEDS: Clopidogrel Bisulfate 75 MG TAB PO SCH (11:03)
[2021-12-05] MEDS: guaiFENesin ER 600 MG TAB PO SCH ×2 (11:04→20:38)
[2021-12-05] MEDS ORDERED: Piperacillin/Tazobactam 3.375 GM in Sodium Chloride 0.9% 100 ML IVPB SCH (12:00)
[2021-12-05] MEDS ORDERED: Piperacillin/Tazobactam 2.25 GM in Sodium Chloride 0.9% 100 ML IVPB SCH (14:00)
[2021-12-05] MEDS: Iron, Sodium Ferric Gluconate 250 MG in Sodium Chloride 0.9% 250 ML 250 ML IVPB SCH ×2 (14:38→16:24)
[2021-12-05 16:04] LABS: Anion Gap 20 mmol/L (10-20); BUN (Urea Nitrogen) 85 mg/dL (9.8-20.1); Calc. Creatinine Clearance 15 mL/min (70-130); Calcium 8.9 mg/dL (7.8-10.44); Carbon Dioxide 24 mmol/L (23-31); Chloride 99 mmol/L (98-107); Glucose 233 mg/dL (83-110); Sodium 138 mmol/L (136-145)
[2021-12-05 16:15] LABS: Potassium 5.1 mmol/L (3.5-5.1)
[2021-12-05] MEDS: Piperacillin/Tazobactam 3.375 GM in Sodium Chloride 0.9% 100 ML IVPB SCH (16:29)
[2021-12-05] MEDS: Sodium Bicarbonate 75 MEQ, Admixture Fee 1 EACH in Sodium Chloride 0.45% 1,000 ML IV SCH (16:42)
[2021-12-05] MEDS: Albuterol Sulfate 2.5 mg/3 ml Neb NEB SCH ×2 (16:45→21:22)
[2021-12-05] MEDS: Acetylcysteine 800 MG/4 ML VIAL PO SCH ×2 (16:47→21:22)
[2021-12-05] MEDS: PARoxetine 20 MG TAB PO SCH (20:38)
[2021-12-05] MEDS: Atorvastatin Calcium 40 MG TAB PO SCH (20:38)
[2021-12-06] MEDS: Piperacillin/Tazobactam 3.375 GM in Sodium Chloride 0.9% 100 ML IVPB SCH ×2 (03:06→15:08)
[2021-12-06] MEDS: Acetylcysteine 800 MG/4 ML VIAL PO SCH ×2 (03:46→07:21)
[2021-12-06] MEDS: Albuterol Sulfate 2.5 mg/3 ml Neb NEB SCH ×6 (03:47→22:28)
[2021-12-06 04:31] LABS: Albumin 3.8 g/dL (3.4-4.8); Anion Gap 27 mmol/L (10-20); BUN (Urea Nitrogen) 94 mg/dL (9.8-20.1); BUN/Creatinine Ratio 29.47; Calc. Creatinine Clearance 13 mL/min (70-130); Calcium 9.4 mg/dL (7.8-10.44); Carbon Dioxide 19 mmol/L (23-31); Chloride 99 mmol/L (98-107); Glucose 218 mg/dL (83-110); Phosphorus 4.6 mg/dL (2.3-4.7); Potassium 5.5 mmol/L (3.5-5.1); Sodium 139 mmol/L (136-145)
[2021-12-06] MEDS: guaiFENesin ER 600 MG TAB PO SCH ×2 (07:40→20:16)
[2021-12-06] MEDS: Bupropion 150 MG XL TAB PO SCH (07:40)
[2021-12-06] MEDS: Ascorbic Acid 500 mg Chewable Tablet PO SCH (07:41)
[2021-12-06] MEDS: Carvedilol 12.5 MG TAB PO SCH ×2 (07:41→20:16)
[2021-12-06] MEDS: Alogliptin 25 MG TAB PO SCH (07:41)
[2021-12-06] MEDS: Ferrous Sulfate 325 MG TAB PO SCH (07:41)
[2021-12-06] MEDS: Apixaban 2.5 MG TAB PO SCH ×2 (07:41→20:16)
[2021-12-06] MEDS: Pantoprazole 40 MG VIAL IVP SCH (07:41)
[2021-12-06] MEDS: Clopidogrel Bisulfate 75 MG TAB PO SCH (07:41)
[2021-12-06] MEDS: HumaLOG 300 UNITS/3 ML VIAL SC PRN ×2 (08:05→11:59)
[2021-12-06] MEDS: Cefepime 1 GM in Sodium Chloride 0.9% 100 ML IVPB SCH (10:45)
[2021-12-06] MEDS: Acetylcysteine 800 MG/4 ML VIAL INH SCH ×3 (11:12→19:10)
[2021-12-06] MEDS: Sodium Bicarbonate 75 MEQ, Admixture Fee 1 EACH in Sodium Chloride 0.45% 1,000 ML IV SCH (13:48)
[2021-12-06 14:50] LABS: Anion Gap 19 mmol/L (10-20); BUN (Urea Nitrogen) 99 mg/dL (9.8-20.1); Calc. Creatinine Clearance 13 mL/min (70-130); Calcium 9.2 mg/dL (7.8-10.44); Carbon Dioxide 28 mmol/L (23-31); Chloride 100 mmol/L (98-107); Glucose 159 mg/dL (83-110); Potassium 4.6 mmol/L (3.5-5.1); Sodium 142 mmol/L (136-145)
[2021-12-06] MEDS: Iron, Sodium Ferric Gluconate 250 MG in Sodium Chloride 0.9% 250 ML 250 ML IVPB SCH (16:52)
[2021-12-06] MEDS: Atorvastatin Calcium 40 MG TAB PO SCH (20:15)
[2021-12-06] MEDS: PARoxetine 20 MG TAB PO SCH (20:16)
[2021-12-07] MEDS: Acetylcysteine 800 MG/4 ML VIAL INH SCH ×7 (02:55→22:45)
[2021-12-07] MEDS: Albuterol Sulfate 2.5 mg/3 ml Neb NEB SCH ×6 (02:55→22:45)
[2021-12-07 03:30] LABS: Albumin 3.7 g/dL (3.4-4.8); Anion Gap 23 mmol/L (10-20); BUN (Urea Nitrogen) 102 mg/dL (9.8-20.1); BUN/Creatinine Ratio 29.31; Calc. Creatinine Clearance 13 mL/min (70-130); Calcium 9.3 mg/dL (7.8-10.44); Carbon Dioxide 24 mmol/L (23-31); Chloride 97 mmol/L (98-107); Glucose 194 mg/dL (83-110); Phosphorus 4.3 mg/dL (2.3-4.7); Potassium 4.5 mmol/L (3.5-5.1); Sodium 139 mmol/L (136-145)
[2021-12-07] MEDS: Piperacillin/Tazobactam 3.375 GM in Sodium Chloride 0.9% 100 ML IVPB SCH ×2 (03:51→15:59)
[2021-12-07] MEDS: Carvedilol 12.5 MG TAB PO SCH ×2 (07:57→20:31)
[2021-12-07] MEDS: guaiFENesin ER 600 MG TAB PO SCH ×2 (07:57→20:31)
[2021-12-07] MEDS: Ascorbic Acid 500 mg Chewable Tablet PO SCH (07:57)
[2021-12-07] MEDS: Alogliptin 25 MG TAB PO SCH (07:57)
[2021-12-07] MEDS: Ferrous Sulfate 325 MG TAB PO SCH (07:57)
[2021-12-07] MEDS: Pantoprazole 40 MG VIAL IVP SCH (07:57)
[2021-12-07] MEDS: Bupropion 150 MG XL TAB PO SCH (07:57)
[2021-12-07] MEDS: HumaLOG 300 UNITS/3 ML VIAL SC PRN ×3 (08:29→20:33)
[2021-12-07] MEDS ORDERED: Sodium Bicarbonate 75 MEQ, Admixture Fee 1 EACH in Sodium Chloride 0.45% 1,000 ML IV SCH ×2 (09:00→11:00)
[2021-12-07] MEDS: Cefepime 1 GM in Sodium Chloride 0.9% 100 ML IVPB SCH (09:12)
[2021-12-07] MEDS: Apixaban 2.5 MG TAB PO SCH ×2 (10:23→21:44)
[2021-12-07] MEDS: Clopidogrel Bisulfate 75 MG TAB PO SCH (10:24)
[2021-12-07 11:00] LABS: Creatinine, Urine 77.79 mg/dL (47-110)
[2021-12-07] MEDS: Iron, Sodium Ferric Gluconate 250 MG in Sodium Chloride 0.9% 250 ML 250 ML IVPB SCH (13:21)
[2021-12-07 16:53] LABS: Sodium, Urine Less than 20 mmol/L (Not Available)
[2021-12-07] MEDS: Atorvastatin Calcium 40 MG TAB PO SCH (20:31)
[2021-12-07] MEDS: PARoxetine 20 MG TAB PO SCH (20:31)
[2021-12-07] MEDS: Ondansetron ODT 4 MG TAB PO PRN (20:44)
[2021-12-07] MEDS: Sodium Bicarbonate 75 MEQ, Admixture Fee 1 EACH in Sodium Chloride 0.45% 1,000 ML IV SCH (21:43)
[2021-12-08] MEDS: Piperacillin/Tazobactam 3.375 GM in Sodium Chloride 0.9% 100 ML IVPB SCH (03:47)
[2021-12-08] MEDS: Acetylcysteine 800 MG/4 ML VIAL INH SCH ×6 (05:02→23:45)
[2021-12-08] MEDS: Albuterol Sulfate 2.5 mg/3 ml Neb NEB SCH ×6 (05:02→23:45)
[2021-12-08 05:18] LABS: INR-International Normal Ratio 1.4; Prothrombin Time 15.4 sec (9.5-12.1)
[2021-12-08 05:25] LABS: Anion Gap 21 mmol/L (10-20); BUN (Urea Nitrogen) 109 mg/dL (9.8-20.1); Calc. Creatinine Clearance 13 mL/min (70-130); Calcium 8.8 mg/dL (7.8-10.44); Carbon Dioxide 27 mmol/L (23-31); Chloride 98 mmol/L (98-107); Glucose 179 mg/dL (83-110); Potassium 4.5 mmol/L (3.5-5.1); Sodium 141 mmol/L (136-145)
[2021-12-08 06:37] LABS: #Monocytes 0.5 10x3/uL (0.0-1.1); #Neutrophils 7.4 10x3/uL (1.5-8.4); %Basophils 0.2 % (0.0-2.0); %Eosinophils 0.2 % (0.0-6.0); %Lymphocytes 5.1 % (18.0-47.0); %Monocytes 5.3 % (0.0-10.0); %Neutrophils 86.6 % (40.0-75.0); Hemoglobin 8.1 g/dL (12.0-15.5); Mean Corpuscular HGB CONC 31.9 g/dL (32.0-36.0); Mean Corpuscular Hemoglobin 30.8 pg (27.0-33.0); Mean Corpuscular Volume 96.6 fl (81.6-98.3); Mean Platelet Volume 11.1 fl (7.4-10.4); Platelet Count 100 10x3/uL (150-450); RBC Distribution Width 14.4 % (11.5-14.5); Red Blood Cell (RBC) Count 2.63 10x6/uL (3.90-5.03); White Blood Cell (WBC) Count 8.6 10x3/uL (3.5-10.5)
[2021-12-08] MEDS: Sodium Bicarbonate 75 MEQ, Admixture Fee 1 EACH in Sodium Chloride 0.45% 1,000 ML IV SCH ×2 (07:59→17:14)
[2021-12-08] MEDS: guaiFENesin ER 600 MG TAB PO SCH ×2 (08:26→20:54)
[2021-12-08] MEDS: Carvedilol 12.5 MG TAB PO SCH ×2 (08:26→20:54)
[2021-12-08] MEDS: Ascorbic Acid 500 mg Chewable Tablet PO SCH (08:26)
[2021-12-08] MEDS: Ferrous Sulfate 325 MG TAB PO SCH (08:26)
[2021-12-08] MEDS: Alogliptin 25 MG TAB PO SCH (08:26)
[2021-12-08] MEDS: Pantoprazole 40 MG VIAL IVP SCH (08:27)
[2021-12-08] MEDS: Cefepime 1 GM in Sodium Chloride 0.9% 100 ML IVPB SCH (08:27)
[2021-12-08] MEDS: HumaLOG 300 UNITS/3 ML VIAL SC PRN ×2 (09:41→12:23)
[2021-12-08] MEDS: Clopidogrel Bisulfate 75 MG TAB PO SCH (09:42)
[2021-12-08] MEDS: Apixaban 2.5 MG TAB PO SCH ×2 (09:42→21:14)
[2021-12-08] MEDS: Bupropion 150 MG XL TAB PO SCH (09:46)
[2021-12-08] MEDS: Azithromycin 500 MG in Sodium Chloride 0.9% 250 ML 250 ML IVPB SCH (10:00)
[2021-12-08] MEDS: Ondansetron PF 4 MG/2 ML Vial IVP PRN (10:48)
[2021-12-08] MEDS: metroNIDAZOLE 500 MG in Premix Bag 1 BAG IVPB SCH ×3 (11:44→23:51)
[2021-12-08 13:29] LABS: Actual Bicarbonate (HCO3a) 28.9 mEq/L (22-28); Base Excess (BEa) 1.2 mEq/L (-2.0 to +3.0); CO2 Tension 64.7 mmHg (35.0-45.0); Calcium, Ionized (arterial) 1.15 mmol/L (1.12-1.30); Carboxyhemoglobin (COHb) 0.9 gm% (0.0-3.0); Hemoglobin (Hb) 8.9 g/dL (12.0-16.0); O2 Tension (PaO2), arterial 76.2 mmHg (> 70.0); Puncture Site LBA; pH, Arterial 7.27 (7.35-7.45)
[2021-12-08 13:33] LABS: ALV-art Gradient 42.565 mmHg (0-20)
[2021-12-08 17:25] LABS: Actual Bicarbonate (HCO3a) 28.9 mEq/L (22-28); Base Excess (BEa) 1.2 mEq/L (-2.0 to +3.0); CO2 Tension 64.7 mmHg (35.0-45.0); Carboxyhemoglobin (COHb) 0.9 gm% (0.0-3.0); Hemoglobin (Hb) 8.9 g/dL (12.0-16.0); O2 Tension (PaO2), arterial 76.2 mmHg (> 70.0); pH, Arterial 7.27 (7.35-7.45)
[2021-12-08 17:26] LABS: Calcium, Ionized (arterial) 1.15 mmol/L (1.12-1.30)
[2021-12-08 17:28] LABS: ALV-art Gradient 42.565 mmHg (0-20)
[2021-12-08] MEDS: PARoxetine 20 MG TAB PO SCH (20:54)
[2021-12-08] MEDS: Atorvastatin Calcium 40 MG TAB PO SCH (20:54)
[2021-12-09] MEDS: ALPRAZolam 0.25 MG TAB PO PRN (02:50)
[2021-12-09] MEDS: Ondansetron ODT 4 MG TAB PO PRN (02:55)
[2021-12-09] MEDS: Albuterol Sulfate 2.5 mg/3 ml Neb NEB SCH ×6 (03:15→22:45)
[2021-12-09] MEDS: Acetylcysteine 800 MG/4 ML VIAL INH SCH ×2 (03:15→07:18)
[2021-12-09 03:43] LABS: Hemoglobin 7.7 g/dL (12.0-15.5); Mean Corpuscular HGB CONC 32.5 g/dL (32.0-36.0); Mean Corpuscular Hemoglobin 31.3 pg (27.0-33.0); Mean Corpuscular Volume 96.3 fl (81.6-98.3); Mean Platelet Volume 11.5 fl (7.4-10.4); Platelet Count 101 10x3/uL (150-450); RBC Distribution Width 14.3 % (11.5-14.5); Red Blood Cell (RBC) Count 2.46 10x6/uL (3.90-5.03); White Blood Cell (WBC) Count 9.5 10x3/uL (3.5-10.5)
[2021-12-09 03:44] LABS: Manual Diff?? YES
[2021-12-09 03:45] LABS: MDiff Complete? YES
[2021-12-09 03:57] LABS: Band 15 % (5-11); Lymphocytes 8 % (21-51); Monocytes 3 % (0-10); Neutrophil 73 % (42-75); Nucleated RBC 1 % (0); Platelet Morphology Comment Appears Decreased; Reactive Lymphocytes 1 % (0-10)
[2021-12-09 03:59] LABS: Toxic Granulation SLIGHT; Vacuoles SLIGHT
[2021-12-09 04:00] LABS: Anisocytosis SLIGHT = 6-15 cells (100X) (0-5/hpf); Basophilic Stippling SLIGHT = 1-2 cells (100X) (None Seen); Elliptocytes SLIGHT = 2-5 cells (100X) (0-1/hpf); Hypochromia SLIGHT = 6-15 cells (100X) (0-5/hpf); Macrocytosis SLIGHT = 6-15 cells (100X) (0-5/hpf); Microcytosis SLIGHT = 6-15 cells (100X) (0-5/hpf); Polychromasia SLIGHT = 2-3 cells (100X) (0-2/hpf)
[2021-12-09 04:01] LABS: Anion Gap 22 mmol/L (10-20); BUN (Urea Nitrogen) 112 mg/dL (9.8-20.1); Calc. Creatinine Clearance 13 mL/min (70-130); Calcium 8.9 mg/dL (7.8-10.44); Carbon Dioxide 26 mmol/L (23-31); Chloride 96 mmol/L (98-107); Glucose 162 mg/dL (83-110); Potassium 4.3 mmol/L (3.5-5.1); Sodium 140 mmol/L (136-145)
[2021-12-09] MEDS: Sodium Bicarbonate 75 MEQ, Admixture Fee 1 EACH in Sodium Chloride 0.45% 1,000 ML IV SCH ×2 (05:20→20:46)
[2021-12-09] MEDS: metroNIDAZOLE 500 MG in Premix Bag 1 BAG IVPB SCH ×4 (05:21→23:51)
[2021-12-09 05:39] VITALS: BMI 27.0
[2021-12-09] MEDS ORDERED: Lorazepam 2 MG/ML VIAL SLOW IVP SCH (05:45)
[2021-12-09 07:59] LABS: Puncture Site LBA
[2021-12-09] MEDS: Pantoprazole 40 MG VIAL IVP SCH (08:15)
[2021-12-09] MEDS: Ascorbic Acid 500 mg Chewable Tablet PO SCH (08:16)
[2021-12-09] MEDS: Ferrous Sulfate 325 MG TAB PO SCH (08:16)
[2021-12-09] MEDS: guaiFENesin ER 600 MG TAB PO SCH ×3 (08:16→22:40)
[2021-12-09] MEDS: Alogliptin 25 MG TAB PO SCH (08:16)
[2021-12-09] MEDS: Bupropion 150 MG XL TAB PO SCH (08:16)
[2021-12-09] MEDS: Clopidogrel Bisulfate 75 MG TAB PO SCH (08:17)
[2021-12-09] MEDS: Cefepime 0.5 GM, Admixture Fee 1 EACH in Sodium Chloride 0.9% 100 ML IVPB SCH (08:17)
[2021-12-09] MEDS: Apixaban 2.5 MG TAB PO SCH ×2 (08:17→20:47)
[2021-12-09] MEDS: Carvedilol 12.5 MG TAB PO SCH ×2 (08:18→20:50)
[2021-12-09] MEDS: Azithromycin 500 MG in Sodium Chloride 0.9% 250 ML 250 ML IVPB SCH (10:14)
[2021-12-09] MEDS ORDERED: Morphine 2 MG/ML VIAL SLOW IVP PRN ×2 (12:12→12:20)
[2021-12-09] MEDS: Atorvastatin Calcium 40 MG TAB PO SCH ×2 (20:47→22:40)
[2021-12-09] MEDS: PARoxetine 20 MG TAB PO SCH ×2 (20:49→22:40)
[2021-12-09] MEDS: EPOETIN ALFA-EPBX (ESRD) 10,000 UNIT/ML VIAL SC SCH (20:59)
[2021-12-10 03:12] LABS: Hemoglobin 7.8 g/dL (12.0-15.5); Mean Corpuscular HGB CONC 32.8 g/dL (32.0-36.0); Mean Corpuscular Hemoglobin 31.7 pg (27.0-33.0); Mean Corpuscular Volume 96.7 fl (81.6-98.3); Mean Platelet Volume 11.4 fl (7.4-10.4); Platelet Count 104 10x3/uL (150-450); RBC Distribution Width 14.3 % (11.5-14.5); Red Blood Cell (RBC) Count 2.46 10x6/uL (3.90-5.03); White Blood Cell (WBC) Count 11.2 10x3/uL (3.5-10.5)
[2021-12-10 03:18] LABS: MDiff Complete? YES; Manual Diff?? YES
[2021-12-10 03:19] LABS: Anion Gap 26 mmol/L (10-20); BUN (Urea Nitrogen) 122 mg/dL (9.8-20.1); Calc. Creatinine Clearance 12 mL/min (70-130); Calcium 8.4 mg/dL (7.8-10.44); Carbon Dioxide 23 mmol/L (23-31); Chloride 96 mmol/L (98-107); Glucose 191 mg/dL (83-110); Potassium 4.2 mmol/L (3.5-5.1); Sodium 141 mmol/L (136-145)
[2021-12-10] MEDS: Albuterol Sulfate 2.5 mg/3 ml Neb NEB SCH ×2 (03:22→07:10)
[2021-12-10 03:40] LABS: Band 10 % (5-11); Lymphocytes 8 % (21-51); Monocytes 2 % (0-10); Neutrophil 78 % (42-75); Platelet Morphology Comment Appears Decreased; Reactive Lymphocytes 2 % (0-10)
[2021-12-10] MEDS: metroNIDAZOLE 500 MG in Premix Bag 1 BAG IVPB SCH (05:55)
[2021-12-10 07:33] VITALS: TEMP 96.9
[2021-12-10] MEDS: Cefepime 0.5 GM, Admixture Fee 1 EACH in Sodium Chloride 0.9% 100 ML IVPB SCH (08:12)
[2021-12-10] MEDS: HumaLOG 300 UNITS/3 ML VIAL SC PRN (08:13)
[2021-12-10] MEDS: Sodium Bicarbonate 75 MEQ, Admixture Fee 1 EACH in Sodium Chloride 0.45% 1,000 ML IV SCH (09:00)
[2021-12-10] MEDS: Alogliptin 25 MG TAB PO SCH (09:01)
[2021-12-10] MEDS: Apixaban 2.5 MG TAB PO SCH (09:01)
[2021-12-10] MEDS: Bupropion 150 MG XL TAB PO SCH (09:01)
[2021-12-10] MEDS: Ferrous Sulfate 325 MG TAB PO SCH (09:01)
[2021-12-10] MEDS: Ascorbic Acid 500 mg Chewable Tablet PO SCH (09:01)
[2021-12-10] MEDS: Carvedilol 12.5 MG TAB PO SCH (09:02)
[2021-12-10] MEDS: guaiFENesin ER 600 MG TAB PO SCH (09:02)
[2021-12-10] MEDS: Clopidogrel Bisulfate 75 MG TAB PO SCH (09:02)
[2021-12-10 09:56] VITALS: BP 121/70
== END 2021-12-10 10:45 | disposition hospice, inpatient (51) | DRG 371 ==
LOC: CSHTELE 15:57 → OBSVTOIN 11-30 14:58 → CSHIMCU 12-05 13:44
PROVIDERS: ADMIT Internal Medicine; ATTEND Hospitalist
PROC: 5A09457 Assistance with Respiratory Ventilation, 24-96 Consecutive Hours, Continuous Positive Airway Pressure (ICD-10-PCS; principal; 2021-12-05)
DX: A04.8 Other specified bacterial intestinal infections (principal); N17.0 Acute kidney failure with tubular necrosis; J18.9 Pneumonia, unspecified organism; G93.41 Metabolic encephalopathy; I50.43 Acute on chronic combined systolic (congestive) and diastolic (congestive) heart failure; J96.01 Acute respiratory failure with hypoxia; I13.0 Hypertensive heart and chronic kidney disease with heart failure and stage 1 through stage 4 chronic kidney disease, or unspecified chronic kidney disease; I48.21 Permanent atrial fibrillation; J44.1 Chronic obstructive pulmonary disease with (acute) exacerbation; J44.0 Chronic obstructive pulmonary disease with (acute) lower respiratory infection; E87.3 Alkalosis; E87.2 Acidosis; J98.11 Atelectasis; Z20.822 Contact with and (suspected) exposure to COVID-19; Z51.5 Encounter for palliative care; K21.9 Gastro-esophageal reflux disease without esophagitis; Z66 Do not resuscitate; E11.22 Type 2 diabetes mellitus with diabetic chronic kidney disease; E86.0 Dehydration; D63.1 Anemia in chronic kidney disease; I25.118 Atherosclerotic heart disease of native coronary artery with other forms of angina pectoris; I16.0 Hypertensive urgency; F32.A Depression, unspecified; F41.1 Generalized anxiety disorder; E11.51 Type 2 diabetes mellitus with diabetic peripheral angiopathy without gangrene; I70.213 Atherosclerosis of native arteries of extremities with intermittent claudication, bilateral legs; I95.2 Hypotension due to drugs; N18.32 Chronic kidney disease, stage 3b; I65.23 Occlusion and stenosis of bilateral carotid arteries; G89.29 Other chronic pain; D50.9 Iron deficiency anemia, unspecified; E78.2 Mixed hyperlipidemia; I25.5 Ischemic cardiomyopathy; I70.1 Atherosclerosis of renal artery; E11.42 Type 2 diabetes mellitus with diabetic polyneuropathy; I49.5 Sick sinus syndrome; Z95.0 Presence of cardiac pacemaker; Z79.899 Other long term (current) drug therapy; Z79.02 Long term (current) use of antithrombotics/antiplatelets; Z79.4 Long term (current) use of insulin; Z95.5 Presence of coronary angioplasty implant and graft; Z95.1 Presence of aortocoronary bypass graft; Z90.49 Acquired absence of other specified parts of digestive tract; Z90.710 Acquired absence of both cervix and uterus; Z82.49 Family history of ischemic heart disease and other diseases of the circulatory system; Z82.3 Family history of stroke; Z79.01 Long term (current) use of anticoagulants; E87.5 Hyperkalemia
CPT/HCPCS: 36415; 36416; 36600; 71045; 71250; 80048; 80061; 80069; 81001; 82040; 82553; 82570; 82728; 82805; 83036; 83540; 83550; 83630; 83735; 83880; 84156; 84300; 84443; 84540; 85025; 85027; 85379; 85610; 87045; 87046; 87070; 87205; 87328; 87329; 87427; 87449; 87633; 93005; 93010; 93306; 94640; 94660; 94667; 94668; 94669; 94760; 96374; 96375; 96376; C9113; G0378; J0456; J0692; J1815; J1940; J2060; J2405; J2543; J2916; J3475; J3490; J7050; J7611; P9047; Q0162; Q5105; U0003; U0005

== ENCOUNTER 2021-12-10 10:53 | Inpatient (IN) | payer OTHER ==
[2021-12-10 11:12] VITALS: BMI 24.3
[2021-12-10] MEDS ORDERED: Scopolamine 1.5 mg/72 hour Patch TOP PRN (11:15)
[2021-12-10] MEDS ORDERED: Lorazepam 2 MG/ML VIAL SLOW IVP PRN (11:15)
[2021-12-10] MEDS ORDERED: Morphine 4 MG/ML VIAL SLOW IVP PRN (11:15)
[2021-12-10] MEDS ORDERED: Ondansetron PF 4 MG/2 ML Vial IVP PRN (11:15)
[2021-12-10] MEDS: Morphine 4 MG/ML VIAL SLOW IVP SCH ×4 (12:20→23:39)
[2021-12-10] MEDS: Lorazepam 2 MG/ML VIAL SLOW IVP SCH ×3 (12:21→21:27)
[2021-12-11] MEDS: Lorazepam 2 MG/ML VIAL SLOW IVP SCH ×8 (02:11→20:52)
[2021-12-11] MEDS: Morphine 4 MG/ML VIAL SLOW IVP SCH ×8 (03:21→21:42)
[2021-12-11 09:11] VITALS: BP 122/70; TEMP 98.2
[2021-12-11] MEDS ORDERED: Morphine 4 MG/ML VIAL SLOW IVP PRN (13:24)
[2021-12-11] MEDS ORDERED: Lorazepam 2 MG/ML VIAL SLOW IVP PRN (13:24)
== END 2021-12-11 22:55 | disposition expired | DRG 951 ==
LOC: CSHIMCU 10:53
PROVIDERS: ADMIT Family Medicine; ATTEND Family Medicine
DX: Z51.5 Encounter for palliative care (principal); I50.33 Acute on chronic diastolic (congestive) heart failure; I13.0 Hypertensive heart and chronic kidney disease with heart failure and stage 1 through stage 4 chronic kidney disease, or unspecified chronic kidney disease; I25.10 Atherosclerotic heart disease of native coronary artery without angina pectoris; K21.9 Gastro-esophageal reflux disease without esophagitis; E78.5 Hyperlipidemia, unspecified; I48.91 Unspecified atrial fibrillation; N18.30 Chronic kidney disease, stage 3 unspecified; I16.0 Hypertensive urgency; E11.22 Type 2 diabetes mellitus with diabetic chronic kidney disease; D63.1 Anemia in chronic kidney disease; Z95.0 Presence of cardiac pacemaker; Z79.899 Other long term (current) drug therapy; Z79.84 Long term (current) use of oral hypoglycemic drugs; Z79.4 Long term (current) use of insulin; Z95.5 Presence of coronary angioplasty implant and graft; Z90.49 Acquired absence of other specified parts of digestive tract; Z90.710 Acquired absence of both cervix and uterus; Z95.1 Presence of aortocoronary bypass graft; Z98.890 Other specified postprocedural states; Z79.02 Long term (current) use of antithrombotics/antiplatelets
CPT/HCPCS: 94760; J2060; J2270